=== PATIENT | female | born 1995 | race Caucasian/White ===

== ENCOUNTER 2017-04-19 16:58 | Emergency (ER) | payer OTHER ==
[2017-04-19 17:02] VITALS: BP 116/78; BMI 29.0
[2017-04-19] MEDS ORDERED: TORADOL 60 MG VIAL IM ONE (17:47)
--- NOTE | 2017-04-19 17:50 | DR.EXTPAIN ---
HPI - Time seen Time seen: 17:45 - PCP Primary Care Physician: NIKKI - HPI Comment HPI Comment: HISTORY BELOW. - Complaint/Symptoms Chief Complaint Doctor Comments: INJURY LEFT UPPER EXTREMITY DUE TO A FALL YESTERDAY. HAVING PROBLEM MOVING LEFT LIMB. Chief Complaint:: PT. STATES SHE FELL DOWN HER STEPS YESTERDAY LANDING ON THE PALMS OF HER HANDS. PT. C/O LEFT FOREARM, ELBOW, AND LEFT UPPER ARM PAIN. PT. STATES SHE IS UNABLE TO MOVE HER ARM WITHOUT PAIN. PT. IS WEARING A SLING. - Nurses notes reviewed Nurses Notes Review: Yes - Source History Provided: Patient - Mode of arrival Mode of Arrival: Ambulatory - Timing Onset of Chief Complaint: 04/18/17 - Context History of: None - Associated signs and symptoms Associated Signs and Symptoms: Weakness, Pain PMH - PMH Past Medical History: No Past Surgical History: No Surgical History: No History - Family History History of Family Medical Conditions: Yes Family Medical History: Cancer, [place] - Social History Does patient currently use any type of tobacco product: Yes Have you used tobacco products in the last 12 months: Yes Type of Tobacco Use: Cigarettes Does any household member use tobacco: No Alcohol Use: None Do you use any recreational Drugs:: No Lives With: Family Lives Where: Home - infectious screening In the last 2 months have you had wt loss of >10#?: NO Have you had fever, night sweats or hemotysis?: No Have you traveled outside the country in the last 6 months?: No Isolation: Standard ROS - Review of Systems Constitutional: No Symptoms Reported Eyes: No Symptoms Reported ENTM: No Symptoms Reported Respiratoy: No Symptoms Reported Cardiovascular: No Symptoms Reported Gastrointestinal/Abdominal: No Symptoms Reported Genitourinary: No Symptoms Reported Neurological: No Symptoms Reported Musculoskeletal: Left, Shoulder, Arm, Elbow, Forearm Integumentary: No Symptoms Reported Hematologic/Lymphatic: No Symptoms Reported Endocrine: No Symptoms Reported All Other Systems: Reviewed and Negative PE - Vital Signs Vitals: Temperature 98.5 F Pulse Rate 72 Respiratory Rate 17 Blood Pressure 116/78 O2 Sat by Pulse Oximetry 97 - General Limitations: No Limitations General Appearance: Alert - Head Head Exam: Normal Inspection - Eyes Eye exam: Normal Appearance - ENT ENT Exam: Normal External Ear Exam - Neck Neck Exam: Trachea Midline - Chest Chest Inspection: Symmetric Chest Wall Rise - Respiratory Respiratory Exam: Normal Lung Sounds Bilat Respiratory Exam: Bilateral Clear to Auscultation - Cardiovascular Cardiovascular Exam: Regular Rate, Normal Rhythm, Normal Heart Sounds - Abdominal Exam Abdominal Exam: Normal Bowel Sounds, Soft. negative: Tenderness - Extremities Extremities Exam: Tenderness (TENDERNESS LEFT SHOULDER, ARM AND ELBOW. DECREASE ROM.) - Lower Extremities Neurovascular/Tendon Exam: Normal Capillary Refill Gait Exam: Observed and Normal - Back Back Exam: Normal Inspection - Neurological Neurological Exam: Alert, Oriented X3 - Psychiatric Psychiatric Exam: Normal Affect, Normal Mood - Skin Skin Exam: Normal Color MDM - Differential Diagnosis Differential Diagnosis: Contusion, Fracture, Sprain Course - Treatment Treatment: SEE ORDERS. PATIENT SIGN OUT AMA BEFORE EVALUATION WAS COMPLETED. - Education/Counseling Education/Counseling: Patient, Education Educated On: Diagnosis ROR - XRAY XRAY Interpreted by: Radiologist XRAY Findings: REPORT NOTED - Diagnosis Discharge Problem: Sprain of left elbow Qualifiers: Encounter type: initial encounter Qualified Code(s): S53.402A - Unspecified sprain of left elbow, initial encounter Contusion of left arm Qualifiers: Encounter type: initial encounter Qualified Code(s): S40.022A - Contusion of left upper arm, initial encounter Sprain of left shoulder Qualifiers: Encounter type: initial encounter Shoulder sprain type: unspecified sprain Qualified Code(s): S43.402A - Unspecified sprain of left shoulder joint, initial encounter - Discharge Plan Disposition: 07 AGAINST MEDICAL ADVICE Condition: Stable - Follow ups/Referrals Follow ups/Referrals: FAUSTO JORDAN [Primary Care Provider] - 3 days - Instructions
[2017-04-19] MEDS ORDERED: TORADOL 60 MG VIAL ONE (18:27)
--- NOTE | 2017-04-19 18:58 | RAD ---
Indication: Pain . Exam: Left forearm series Findings: The radius and ulna are intact. No fracture or dislocation is seen. The joint spaces are in tact. Impression: No abnormality seen. Reported By:
--- NOTE | 2017-04-19 19:19 | RAD ---
Indication: Pain. Exam: Left humerus series Technique: AP and lateral views Findings: No fracture or dislocation is seen. The joint spaces are intact. The soft tissues are chuy l. Impression: No abnormality seen. Reported By:
== END 2017-04-19 19:17 | disposition left against medical advice (07) ==
LOC: ER 16:58
DX: S53.402A Unspecified sprain of left elbow, initial encounter (principal); S40.022A Contusion of left upper arm, initial encounter; S43.402A Unspecified sprain of left shoulder joint, initial encounter; W10.9XXA Fall (on) (from) unspecified stairs and steps, initial encounter; Y92.9 Unspecified place or not applicable
CPT/HCPCS: 73060; 73090; 96372; 99282; 99283; J1885

== ENCOUNTER → 2017-05-05 | Outpatient (CLI) | payer OTHER ==
[2017-04-19 17:02] VITALS: BP 116/78
--- NOTE | 2017-05-08 13:39 | MRI ---
MR left elbow without contrast Indication: Elbow pain after fall several weeks prior Comparison: 04/19/2017 radiographs. Technique: Multiplanar multi sequence imaging through the left elbow without contrast. Findings: There is elbow joint effusion and edema in the radial head neck. Intra-articular radial hea d fracture is with minimal displacement noted coronal image 10 through 12 of series 1001. Sagittal im age 9 of series 61718 also shows the fracture proceed the articular surface of the radius. Axial imag e 10 of series 1201 shows the fracture. There is small edema/contusion at the capitellum see coronal image 10. The ulnar collateral ligament shows minimal high signal but grossly intact fibers see coronal image 8. Minimal high signal is seen adjacent to the common flexor tendon origin see coronal image 6 and 7. Remaining bone marrow is normal. Trochlear joint is intact. Neurovascular structures are normal. Tric eps tendon, brachialis and biceps tendons are normal. Common extensor tendon origin is intact. Impression: 1. Minimally displaced intra-articular radial head and neck fracture. 2. Small contusion to the capitellum without large intra-articular body identified. Joint effusion is present. 3. Mild strain of the common flexor tendon origin and mild sprain of the ulnar collateral ligament. Reported By:
== END | disposition home or self-care (01) | DRG 556 ==
LOC: RAD 14:40
PROVIDERS: ATTEND Psychiatry & Neurology Neurology
DX: M25.522 Pain in left elbow (principal); M25.422 Effusion, left elbow; S56.212A Strain of other flexor muscle, fascia and tendon at forearm level, left arm, initial encounter; X58.XXXA Exposure to other specified factors, initial encounter; S53.442A Ulnar collateral ligament sprain of left elbow, initial encounter; S52.122A Displaced fracture of head of left radius, initial encounter for closed fracture
CPT/HCPCS: 73221

== ENCOUNTER 2017-07-19 01:58 | Emergency (ER) | payer OTHER ==
[2017-07-19 02:07] VITALS: BP 104/62; BMI 29.9
[2017-07-19] MEDS ORDERED: TORADOL TAB PO ONE ×2 (03:29→03:37)
[2017-07-19] MEDS ORDERED: LEVSIN/MAALOX/LIDOC VISC PO ONE (03:29)
--- NOTE | 2017-07-19 03:29 | DR.GENAD ---
HPI - PCP Primary Care Physician: NFD - HPI Comment HPI Comment: WORSE TONIGHT. HEART BURN IN THE CHEST IS ALSO GETTING WORSE. NO FEVER. USUALLY UTI CAUSE PATIENT TO HAVE PELVIC PRESSURE AND PAIN. - Complaint/Symptoms Chief Complaint Doctors Comments: PELVIC PAIN WND CHEST PAIN TIMES 6 DAYS. Chief Complaint:: BURNING DOWN THE MIDDLE OF CHEST CASSY AFTER EATING OR DRINKING , PAIN AND PRESSURE IN PELVIC AREA ALSO Self Treatment fo Chief Complaint: MOTRIN - Nurses notes reviewed Nurses Notes Review: Yes - Source History Provided: Patient - Mode of Arrival Mode of Arrival: Ambulatory - Timing Onset of Chief Complaint: 07/13/17 Came on: Suddenly - Duration Duration: Constant Duration: Days - Severity Severity: Moderate PMH - PMH Past Medical History: No Past Surgical History: No Surgical History: No History - Family History History of Family Medical Conditions: No Family Medical History: Cancer, [place] - Social History Does patient currently use any type of tobacco product: Yes Have you used tobacco products in the last 12 months: Yes Type of Tobacco Use: Cigarettes How many years tobacco product used: 4 Does any household member use tobacco: No Alcohol Use: None Do you use any recreational Drugs:: No Lives With: Family Lives Where: Home - infectious screening In the last 2 months have you had wt loss of >10#?: NO Have you had fever, night sweats or hemotysis?: No Have you traveled outside the country in the last 6 months?: No Isolation: Standard ROS - Review of Systems Constitutional: negative: Chills, Fever, Weakness, Fatigue Eyes: negative: Eye Pain, Discharge ENTM: No Symptoms Reported. negative: Ear Pain, Nose Discharge, Nose Congestion , Throat Pain Respiratoy: negative: Productive Cough, Non-Productive Cough, Short of Breath, Wheezing, Hemoptysis Cardiovascular: negative: Chest Pain Gastrointestinal/Abdominal: Abdominal Pain, Nausea. negative: Diarrhea, Vomiting Genitourinary: negative: Discharge, Dysuria, Frequency, Hematuria Neurological: negative: Headache, Weakness, Dizziness Musculoskeletal: Back Pain Integumentary: No Symptoms Reported Hematologic/Lymphatic: No Symptoms Reported Endocrine: No Symptoms Reported All Other Systems: Reviewed and Negative PE - Vital Signs Vitals: Temperature 99.0 F Pulse Rate 65 Respiratory Rate 20 Blood Pressure 104/62 O2 Sat by Pulse Oximetry 97 - General Limitations: No Limitations General Appearance: Alert - Head Head Exam: Normal Inspection - Eyes Eye exam: Normal Appearance - ENT ENT Exam: Normal External Ear Exam External Ear Exam: Normal External Inspection TM/Canal Exam: Bilateral Normal Nose Exam: Normal Nose Exam Mouth Exam: Normal Inspection Throat Exam: negative: Tonsillar Erythema, Tonsillomegaly - Neck Neck Exam: Normal Inspection. negative: Trachea Midline, Tenderness, Meningismus, Lymphadenopathy - Chest Chest Inspection: Symmetric Chest Wall Rise - Respiratory Respiratory Exam: Normal Lung Sounds Bilat Respiratory Exam: Bilateral Clear to Auscultation - Cardiovascular Cardiovascular Exam: Regular Rate, Normal Rhythm, Normal Heart Sounds - Abdominal Exam Abdominal Exam: Normal Bowel Sounds, Soft, Tenderness Abdominal Tenderness: Epigastrium - Extremities Extremities Exam: Normal Inspection - Back Back Exam: Normal Inspection - Neurologic Neurological Exam: Alert, Oriented X3, CN II-XII Intact, Motor Sensory Deficit - Psychiatric Psychiatric Exam: Normal Affect, Normal Mood - Skin Skin Exam: Normal Color MDM - Differential Diagnosis Differential Diagnosis: DYSPEPSIA, UTI, PELVIC PAIN Course - Treatment Treatment: SEE ORDERS. - Education/Counseling Education/Counseling: Patient, Education Educated On: Diagnosis, Needs for Follow Up ROR - Labs Reviewed Laboratory Results Reviewed?: Yes Laboratory: Specimen Type Clean catch urine 07/19/17 03:21 Urine Color Yellow (YELLOW) 07/19/17 03:21 Urine Appearance Clear (CLEAR) 07/19/17 03:21 Urine pH 5.0 (5.0 - 8.0) 07/19/17 03:21 Ur Specific [place] 1.020 (1.000-1.030) 07/19/17 03:21 Urine Protein Negative (NEGATIVE) 07/19/17 03:21 Urine Glucose (UA) Negative (NEGATIVE) 07/19/17 03:21 Urine Ketones Negative (NEGATIVE) 07/19/17 03:21 Urine Occult Blood 1+ (NEGATIVE) 07/19/17 03:21 Urine Nitrite Negative (NEGATIVE) 07/19/17 03:21 Urine Bilirubin Negative (NEGATIVE) 07/19/17 03:21 Urine Urobilinogen Normal (NORMAL) 07/19/17 03:21 Ur Leukocyte Esterase 1+ (NEGATIVE) 07/19/17 03:21 Urine RBC 0-2 /HPF (NONE SEEN) 07/19/17 03:21 Urine WBC 0-2 /HPF (NONE SEEN) 07/19/17 03:21 Ur Squamous Epith Cells Few /HPF (NEGATIVE) 07/19/17 03:21 Urine Bacteria Negative /HPF (NEGATIVE) 07/19/17 03:21 Ur Culture Indicated? No/not indicated 07/19/17 03:21 - Diagnosis Discharge Problem: Pelvic pain, Heart burn - Discharge Plan Disposition: HOME, SELF-CARE Condition: Stable Prescriptions: Doxycycline Monohydrate 100 mg PO BID #20 tablet Ranitidine HCl [Zantac] 300 mg PO DAILY #30 tab - Follow ups/Referrals Follow ups/Referrals: NFD,None [Primary Care Provider] - 3 days - Instructions Instructions: Indigestion, [id number], Pelvic Pain, Female, [id number] Additional Instructions: RETURN TO ED IF WORSE.
[2017-07-19] MEDS ORDERED: PEPCID TAB 20 MG PO ONE (03:31)
[2017-07-19 03:36] LABS: BILIRUBIN,URINE NEGATIVE (NEGATIVE); BLOOD/HEMOGLOBIN,URINE 1+ (NEGATIVE); GLUCOSE, URINE NEGATIVE (NEGATIVE); KETONES,URINE NEGATIVE (NEGATIVE); LEUKOCYTE ESTERASE ,URINE 1+ (NEGATIVE); NITRITES,URINE NEGATIVE (NEGATIVE); PROTEIN,URINE NEGATIVE (NEGATIVE); UROBILINOGEN,URINE NORMAL (NORMAL)
[2017-07-19] MEDS ORDERED: PEPCID TAB 20 MG ONE ×2 (03:37→03:38)
[2017-07-19] MEDS ORDERED: LEVSIN/MAALOX/LIDOC VISC ONE (03:38)
[2017-07-19 03:56] LABS: APPEARANCE,URINE CLEAR (CLEAR); COLOR,URINE YELLOW (YELLOW)
[2017-07-19 03:57] LABS: BACTERIA,URINE NEGATIVE /HPF (NEGATIVE); RBC,URINE 0-2 /HPF (NONE SEEN); SQUAMOUS EPITHELIAL CELL,UR FEW /HPF (NEGATIVE)
== END 2017-07-19 04:53 | disposition home or self-care (01) ==
LOC: ER 01:58
DX: R12 Heartburn (principal); R10.2 Pelvic and perineal pain
CPT/HCPCS: 81001; 99282; 99283

== ENCOUNTER 2018-12-06 08:16 | Inpatient (IN) ==
[2018-12-06 08:30] VITALS: BMI 29.2
[2018-12-06] MEDS ORDERED: MOTRIN TAB 800 MG PO PRN (08:30)
[2018-12-06] MEDS ORDERED: MOTRIN TAB 800 MG PO ONE ×2 (08:44→08:48)
[2018-12-06 08:48] LABS: BASOPHILS # (AUTO) 0.1 X10^3/uL (0.0-0.1); BASOPHILS % (AUTO) 0.5 % (0.2-1.0); EOSINOPHILS # (AUTO) 0.1 x10^3/uL (0.0-0.2); EOSINOPHILS % (AUTO) 0.7 % (0.9-2.9); HEMATOCRIT 43.2 % (36.0-47.0); HEMOGLOBIN 14.9 g/dL (12.0-16.0); LYMPHOCYTES # (AUTO) 5.8 X10^3/uL (1.3-2.9); LYMPHOCYTES % (AUTO) 29.6 % (21.0-51.0); MEAN CORPUSCULAR HEMOGLOBIN 31.1 pg (27.0-34.0); MEAN CORPUSCULAR HGB CONC 34.5 g/dL (33.0-35.0); MEAN CORPUSCULAR VOLUME 90.2 fL (80.0-100.0); MEAN PLATELET VOLUME 10.6 fL (7.4-11.0); MONOCYTES # (AUTO) 1.1 x10^3/uL (0.3-0.8); MONOCYTES % (AUTO) 5.5 % (0.0-13.0); NEUTROPHILS # (AUTO) 12.6 x10^3/uL (2.2-4.8); NEUTROPHILS % (AUTO) 63.7 % (42.0-75.0); PLATELET COUNT 274 X10^3/uL (150.0-450.0); RED BLOOD COUNT 4.79 X10^6/uL (3.5-5.4); RED CELL DISTRIBUTION WIDTH 13.2 % (11.6-16.5); WHITE BLOOD COUNT 19.7 X10^3/uL (3.6-10.0)
[2018-12-06 08:57] LABS: ALANINE AMINOTRANSFERASE 8 Units/L (12-78); ALBUMIN 2.9 g/dL (3.4-5.0); ALKALINE PHOSPHATASE 158 Units/L (46-116); ASPARTATE AMINO TRANSFERASE 15 Units/L (15-37); BLOOD UREA NITROGEN 13 mg/dL (7-18); CALCIUM 8.8 mg/dL (8.5-10.1); CARBON DIOXIDE 25.2 mmol/L (21-32); CHLORIDE 103 mmol/L (98-107); COR CA(FOR HYPOALB) 9.7 mg/dL (8.5-10.1); SODIUM 138 mmol/L (136-145); TOTAL PROTEIN 7.6 g/dL (6.4-8.2); eGFR NON BLACK RACES > 60 (>60)
--- NOTE | 2018-12-06 09:23 | DR.PREG ---
HPI Time seen Time Seen by Provider: 12/06/18 08:20 PCP Primary Care Physician: EDDIE HPI Comment HPI Comment: [place] Chief Complaint Chief Complaint Doctors Comments: LABOR, EMERGENCY DELIVERY IN TRIAGE. Chief Complaint:: 37 WEEK OB WITH C/O ACTIVE LABOR. UPON ARRIVAL TO TRIAGE, PT. IS UNABLE TO BE STILL AND SHE STATES SHE HAS TO PUSH. MOMENTARILY AFTER ENTERING TRIAGE ROOM, PT. IS STANDING UP AND REPORTS THAT "HE IS OUT." SEE NURSE'S NOTES FOR FURTHER DOCUMENTATION. Source History Provided: Patient Mode of Arrival Mode of Arrival: Ambulatory Timing Onset of Chief Complaint: 12/06/18 PMH PMH Past Medical History: No Past Surgical History: No Surgical History: No History Family History History of Family Medical Conditions: Yes Family Medical History: Cancer and [place] Social History Does patient currently use any type of tobacco product: Yes Have you used tobacco products in the last 12 months: Yes Type of Tobacco Use: Cigarettes Does any household member use tobacco: No Alcohol Use: None Do you use any recreational Drugs:: No Lives With: Family Lives Where: Home infectious screening In the last 2 months have you had wt loss of >10#?: NO Have you had fever, night sweats or hemotysis?: No Have you traveled outside the country in the last 6 months?: No Isolation: Standard PE Vital Signs Vitals: Temperature 97.2 F Pulse Rate [Right Brachial] 51 Pulse Rate 71 Respiratory Rate 17 Blood Pressure [Right Arm] 120/72 Blood Pressure 119/99 O2 Sat by Pulse Oximetry 99 ROR Labs Reviewed Result Diagrams: 12/06/18 08:30 12/06/18 08:30 Laboratory: WBC 19.7 X10^3/uL (3.6-10.0) H 12/06/18 08:30 RBC 4.79 X10^6/uL (3.5-5.4) 12/06/18 08:30 Hgb 14.9 g/dL (12.0-16.0) 12/06/18 08:30 Hct 43.2 % (36.0-47.0) 12/06/18 08:30 MCV 90.2 fL (80.0-100.0) 12/06/18 08:30 MCH 31.1 pg (27.0-34.0) 12/06/18 08:30 MCHC 34.5 g/dL (33.0-35.0) 12/06/18 08:30 RDW 13.2 % (11.6-16.5) 12/06/18 08:30 Plt Count 274 X10^3/uL (150.0-450.0) 12/06/18 08:30 MPV 10.6 fL (7.4-11.0) 12/06/18 08:30 Neut % (Auto) 63.7 % (42.0-75.0) 12/06/18 08:30 Lymph % (Auto) 29.6 % (21.0-51.0) 12/06/18 08:30 [place] % (Auto) 5.5 % (0.0-13.0) 12/06/18 08:30 Eos % (Auto) 0.7 % (0.9-2.9) L 12/06/18 08:30 Baso % (Auto) 0.5 % (0.2-1.0) 12/06/18 08:30 Neut # (Auto) 12.6 x10^3/uL (2.2-4.8) H 12/06/18 08:30 Lymph # (Auto) 5.8 X10^3/uL (1.3-2.9) H 12/06/18 08:30 [place] # (Auto) 1.1 x10^3/uL (0.3-0.8) H 12/06/18 08:30 Eos # (Auto) 0.1 x10^3/uL (0.0-0.2) 12/06/18 08:30 Baso # (Auto) 0.1 X10^3/uL (0.0-0.1) 12/06/18 08:30 Absolute Nucleated RBC 0.0 /100WBC 12/06/18 08:30 Sodium 138 mmol/L (136-145) 12/06/18 08:30 Corrected Sodium TNP 12/06/18 08:30 Potassium 3.9 mmol/L (3.5-5.1) 12/06/18 08:30 Chloride 103 mmol/L (98-107) 12/06/18 08:30 Carbon Dioxide 25.2 mmol/L (21-32) 12/06/18 08:30 BUN 13 mg/dL (7-18) 12/06/18 08:30 Creatinine 0.90 mg/dL (0.55-1.02) 12/06/18 08:30 Est GFR (MDRD) Af Amer > 60 (>60) 12/06/18 08:30 Est GFR (MDRD) Non-Af > 60 (>60) 12/06/18 08:30 Glucose 108 mg/dL (65-99) H 12/06/18 08:30 Calcium 8.8 mg/dL (8.5-10.1) 12/06/18 08:30 Corrected Calcium 9.7 mg/dL (8.5-10.1) 12/06/18 08:30 Total Bilirubin 0.20 mg/dL (0.2-1.0) 12/06/18 08:30 AST 15 Units/L (15-37) 12/06/18 08:30 ALT 8 Units/L (12-78) L 12/06/18 08:30 Alkaline Phosphatase 158 Units/L (46-116) H 12/06/18 08:30 Total Protein 7.6 g/dL (6.4-8.2) 12/06/18 08:30 Albumin 2.9 g/dL (3.4-5.0) L 12/06/18 08:30 Globulin 4.7 g/dL (2.5-4.5) H 12/06/18 08:30 Albumin/Globulin Ratio 0.6 Ratio (1.1-2.1) L 12/06/18 08:30 RPR Nonreactive (NONREACTIVE) 12/06/18 08:30 Opioid Opioid Risk Tool Total: 0 Total Score Risk Category: Low Risk Copyright: Jose Antonio DAWSON predicting aberrant behaviors
[2018-12-06] MEDS ORDERED: MILK OF MAGNESIA PO PRN (09:40)
[2018-12-06] MEDS ORDERED: DERMOPLAST SPRAY TOP PRN (09:40)
[2018-12-06] MEDS ORDERED: AMBIEN PO PRN (09:40)
[2018-12-06] MEDS ORDERED: D5 1/2 NS 1L W PITOCIN 20 UNITS/L 20 UNITS/1,000 ML BAG IV ONE (11:46)
[2018-12-06] MEDS ORDERED: PITOCIN ONE (11:46)
[2018-12-06] MEDS: PERCOCET TAB 5/325 MG PO PRN ×2 (14:00→23:38)
[2018-12-06] MEDS: D5 1/2 NS 1000 ML 1,000 ML with PITOCIN 20 UNITS IV SCH ×4 (18:24→20:32)
[2018-12-06] MEDS: NICOTINE PATCH TD SCH (20:32)
[2018-12-06] MEDS: ZANTAC PO SCH (20:32)
[2018-12-07 05:16] LABS: HEMATOCRIT 35.9 % (36.0-47.0)
[2018-12-07 05:41] LABS: HEMOGLOBIN 12.6 g/dL (12.0-16.0)
[2018-12-07] MEDS ORDERED: PRENATAL PLUS PO SCH (09:00)
[2018-12-07] MEDS: ZANTAC PO SCH (09:39)
[2018-12-07] MEDS: NICOTINE PATCH TD SCH (09:40)
[2018-12-07] MEDS: PERCOCET TAB 5/325 MG PO PRN (09:49)
[2018-12-07 14:50] VITALS: BP 119/79
== END 2018-12-07 13:05 | disposition home or self-care (01) | DRG 807 ==
LOC: ER 08:16 → LD 08:40 → MED/SURG 09:34
PROVIDERS: ADMIT Specialist; ATTEND Specialist
DX: Z3A.37 37 weeks gestation of pregnancy; O80 Encounter for full-term uncomplicated delivery; Z37.0 Single live birth
CPT/HCPCS: 36415; 80053; 85014; 85018; 85025; 86592; 86850; 86900; 86901; 96365; 99284; A4216; A4222; S0197; J2590

== ENCOUNTER 2021-03-07 09:54 | Inpatient (IN) ==
[2021-03-07 10:14] VITALS: BMI 23.1
[2021-03-07 10:26] LABS: AMNISURE ROM TEST THERE IS A RUPTURE (NO RUPTURE)
[2021-03-07] MEDS ORDERED: D5 1/2 NS 1,000 ML 1,000 ML IV ONE (10:45)
[2021-03-07] MEDS ORDERED: BETADINE SOLN ONE (10:45)
[2021-03-07] MEDS ORDERED: PITOCIN ONE (10:45)
[2021-03-07] MEDS ORDERED: D5 LR + PITOCIN 10 UNITS/L 10 UNITS/1,000 ML BAG IV ONE (10:46)
[2021-03-07] MEDS ORDERED: AMPICILLIN VIAL 2 GRAM ONE (10:56)
[2021-03-07] MEDS ORDERED: NS 100 ML IV 100 ML ONE (10:56)
[2021-03-07] MEDS ORDERED: PHENERGAN INJ 25 MG IM PRN ×2 (11:03→13:56)
[2021-03-07] MEDS ORDERED: D5 LR + PITOCIN 10 UNITS/L 10 UNITS/1,000 ML BAG IV PRN (11:03)
[2021-03-07] MEDS ORDERED: REGLAN INJ 10 MG VIAL IVP PRN (11:03)
[2021-03-07] MEDS ORDERED: PITOCIN IVP ONE (11:03)
[2021-03-07] MEDS ORDERED: STADOL INJ IVP PRN (11:05)
[2021-03-07] MEDS ORDERED: STADOL INJ ONE (11:22)
[2021-03-07 11:25] LABS: BASOPHILS # (AUTO) 0.1 X10^3/uL (0.0-0.1); BASOPHILS % (AUTO) 0.7 % (0.2-1.0); EOSINOPHILS # (AUTO) 0.1 x10^3/uL (0.0-0.2); EOSINOPHILS % (AUTO) 0.6 % (0.9-2.9); HEMATOCRIT 28.6 % (36.0-47.0); HEMOGLOBIN 9.6 g/dL (12.0-16.0); LYMPHOCYTES # (AUTO) 2.3 X10^3/uL (1.3-2.9); LYMPHOCYTES % (AUTO) 21.3 % (21.0-51.0); MEAN CORPUSCULAR HEMOGLOBIN 27.4 pg (27.0-34.0); MEAN CORPUSCULAR HGB CONC 33.8 g/dL (33.0-35.0); MEAN CORPUSCULAR VOLUME 81.1 fL (80.0-100.0); MEAN PLATELET VOLUME 9.4 fL (7.4-11.0); MONOCYTES # (AUTO) 0.9 x10^3/uL (0.3-0.8); MONOCYTES % (AUTO) 7.9 % (0.0-13.0); NEUTROPHILS # (AUTO) 7.6 x10^3/uL (2.2-4.8); NEUTROPHILS % (AUTO) 69.5 % (42.0-75.0); PLATELET COUNT 268 X10^3/uL (150.0-450.0); RED BLOOD COUNT 3.52 X10^6/uL (3.5-5.4); RED CELL DISTRIBUTION WIDTH 14.6 % (11.6-16.5)
[2021-03-07 11:31] LABS: BLOOD UREA NITROGEN 6 mg/dL (7-18); CALCIUM 7.8 mg/dL (8.5-10.1); CARBON DIOXIDE 26.7 mmol/L (21-32); CHLORIDE 106 mmol/L (98-107); CREATININE 0.65 mg/dL (0.55-1.02); SODIUM 139 mmol/L (136-145); eGFR NON BLACK RACES > 60 (>60)
[2021-03-07] MEDS ORDERED: D5 1/2 NS 1,000 ML 1,000 ML IV SCH (12:00)
[2021-03-07] MEDS ORDERED: AMPICILLIN VIAL 2 GRAM 2 G in NS 100 ML IV + SPIKE MINIBAG* 100 ML IV SCH (12:00)
[2021-03-07] MEDS ORDERED: NAROPIN EPIDURAL 0.2% 0 ML ONE (12:33)
[2021-03-07] MEDS ORDERED: LR 1,000 ML IV 1,000 ML IV ONE (12:33)
[2021-03-07] MEDS ORDERED: FENTANYL VIAL INJ 100 mcg ONE ×2 (12:33→12:34)
[2021-03-07] MEDS ORDERED: MOTRIN TAB 800 MG PO PRN (13:56)
[2021-03-07] MEDS: D5 1/2 NS 1,000 ML 1,000 ML with PITOCIN 20 UNITS IV SCH ×4 (14:00→22:00)
[2021-03-07] MEDS ORDERED: DERMOPLAST PAIN RELIEF SPRAY TOP PRN (14:34)
[2021-03-07] MEDS ORDERED: MILK OF MAGNESIA PO PRN (14:34)
[2021-03-07] MEDS ORDERED: AMBIEN PO PRN (14:34)
[2021-03-07] MEDS ORDERED: D5 1/2 NS 1,000 mL + PITOCIN 20 UNITS/L IV 20 UNITS/1,000 ML BAG IV ONE (14:43)
[2021-03-07] MEDS: MOTRIN TAB 800 MG PO PRN ×2 (15:55→23:41)
[2021-03-08 05:10] LABS: HEMOGLOBIN 9.7 g/dL (12.0-16.0)
[2021-03-08] MEDS: D5 1/2 NS 1,000 ML 1,000 ML with PITOCIN 20 UNITS IV SCH ×2 (05:42)
[2021-03-08] MEDS ORDERED: PRENATAL PLUS PO SCH (09:00)
[2021-03-08] MEDS: MOTRIN TAB 800 MG PO PRN (09:58)
[2021-03-08 10:00] VITALS: BP 120/80
--- OUTSIDE RECORDS SUMMARY | 2021-03-08 10:58 | XMS | Continuity of Care Document ---
:1995 Author Name [employer], System Address Unavailable Unavailable , Care Team Providers Name Role Phone Stephanie Resendez NP Unavailable Jeffry Guzman Unavailable [place] Unavailable Unavailable Brenna Resendez NP Unavailable Unavailable Unavailable Problems Name Dates Details Abdominal pain, colicky (R10.84, 789.00) Status: Active Abdominal pain, epigastric (R10.13, 789.06) Status: Active Abdominal pain, RUQ (R10.11, 789.01) Com ments: Pt has Dicyclomine and a PPI Omeprazole that she takes when her sx's recur and has started them back this week. We will again request a precert and schedule her for a gall bladder sonogram. Status: Active Closed nondisplaced fracture of neck of left radius, initial encounter (S52.135A, 813.06) Comments: She has an undispl aced fracture involving the LEFT radial neck as well as the head. Natural history and treatment discussions done with her. She seems to be doing well and seems to be progressing well . [facility] at this time as she seems to be healing well. Status: Active Essentially healthy without known chronic problems Status: Active Finger numbness (R20.0, 782.0) Comments: We will precert and schedule a NCS of the left upper extremity.See above note r/t left elbow Status: Active Left arm pain (M79.602, 729.5) Comments: Given Ketoralac 30 mg IM right deltoid @ 3:55pm per Victorino and referred to the [facility] ER.S/P fall with pain in left forearm rad to left elbow with numbness and tingling in finger tips. Status: Active Menometrorrhagia (N92.1, 626.2) Comments : Currently using Xulane control patches. The hospital has not been able to find any recent ER records and she is not sure of the date she went but says she did have a pelvic exam and thinks they did a sonogram. We will send a referral request for additional evaluation with Dr South in [place]. Status: Active Pain and swelling of elbow, left (M25.522, 719.42) Comments: We will see if we can get an MRI precerted and scheduled of the left upper ext/elbowOnset after a fall on 04/18/2017 seen in Er and xrays were negative for fracture Status: Active Sprain of ulnar collateral ligament of l eft elbow, initial encounter (S53.442A, 841.1) Comments: She has a sprain o f the UCL on the LEFT elbow. No sense of instability. She lacks 15-20 of full extension. We will start physical therapy to regain range of motion as well as strength. She will co me back to the offic e in a month. All questions were answered. Status: Active Medications Name Dates Details Dicyclomine HCl 10 MG Oral Capsule 1 (one) Capsule Capsule Take one cap 30 min before meals TID for 0 days Quantity: 60 {Capsule} Refills: 0 Ordered:07-Jan-2019 Benita Mckeon Start : 07-Jan-2019 Active Ibuprofen 800 MG Oral Tablet 1 TID, prn (800 MG) Active Pantoprazole Sodium 40 MG Oral Tablet Delayed Release 1 (one) Tablet Tablet Take one tab every AM before eating on an empty stomach for 30 days Quantity: 30 {Tablet} Refills: 1 Ordered:07-Jan-2019 Benita Mckeon Start : 07-Jan-2019 Active Allergies and Adverse Reactions Name Dates Details No Known Drug Allergies (Allergy) Onset: 18-Apr-2017 Status : Active Procedures Procedure Dates Details No Known Past Surgical History Completed 07-Jan-2019 Social History Name Dates Details Current tobacco use Status: Active No Drug Use Status: Active Non Drinker/No Alcohol Use Status: Activ e Seat Belt Use: Almost always uses seat belts. Status: Active Vital Signs Date Test Result Details :37 Body temperature 98.1 f Heart Rate 82 /min Comments: Pattern: R egular Respiratory rate 18 /min Comments: Pattern: U nlabored O2 SAT 99 % Comments: Room air Systolic blood pressure 107 mm[Hg] Comments: Patien t Position: Sitting; Cuff Location: Left Arm; Cuff Size: Standard Diastolic blood pressure 66 mm[Hg] Comments: Patie nt Position: Sitting; Cuff Location: Left Arm; Cuff Size: Standard Weight 119 lb Body height 65 in Body mass index (BMI) [Ratio] 19.80 kg/m2 Body surface area Derived from formula 1.59 m2 :07 Body temperature 97.3 f Heart Rate 65 /min Comments: Pattern: R egular Respiratory rate 18 /min Comments: Pattern: U nlabored O2 SAT 100 % Comments: Room air Systolic blood pressure 108 mm[Hg] Comments: Patien t Position: Sitting; Cuff Location: Left Arm; Cuff Size: Standard Diastolic blood pressure 67 mm[Hg] Comments: Patie nt Position: Sitting; Cuff Location: Left Arm; Cuff Size: Standard Weight 130 lb Body height 65 in Body mass index (BMI) [Ratio] 21.63 kg/m2 Body surface area Derived from formula 1.65 m2 :46 Body temperature 98.4 f Heart Rate 87 /min Comments: Pattern: R egular Respiratory rate 18 /min Comments: Pattern: U nlabored Systolic blood pressure 124 mm[Hg] Comments: Patien t Position: Sitting; Cuff Location: Left Arm; Cuff Size: Standard Diastolic blood pressure 72 mm[Hg] Comments: Patie nt Position: Sitting; Cuff Location: Left Arm; Cuff Size: Standard Weight 136 lb Body height 65 in Body mass index (BMI) [Ratio] 22.63 kg/m2 Body surface area Derived from formula 1.68 m2 :52 Body temperature 98 f Comments: Metho d: Oral Heart Rate 91 /min Comments: Pattern: R egular Systolic blood pressure 124 mm[Hg] Comments: Patien t Position: Sitting; Cuff Location: Left Arm; Cuff Size: Standard Diastolic blood pressure 72 mm[Hg] Comments: Patie nt Position: Sitting; Cuff Location: Left Arm; Cuff Size: Standard Weight 180 lb Body height 65 in Body mass index (BMI) [Ratio] 29.95 kg/m2 Body surface area Derived from 1.89 m2 formula :57 Body temperature 98.9 f Comments: Meth od: Oral Heart Rate 64 /min Comments: Pattern: R egular Respiratory rate 19 /min Comments: Pattern: U nlabored O2 SAT 98 % Comments: Room air Systolic blood pressure 106 mm[Hg] Comments: Patien t Position: Sitting; Cuff Location: Left Arm; Cuff Size: Standard Diastolic blood pressure 69 mm[Hg] Comments: Patie nt Position: Sitting; Cuff Location: Left Arm; Cuff Size: Standard Weight 182 lb Body height 66 in Body mass index (BMI) [Ratio] 29.38 kg/m2 Body surface area Derived from formula 1.92 m2 :54 Body temperature 100.2 f Comments: Metho d: Oral Heart Rate 90 /min Comments: Pattern: R egular Respiratory rate 19 /min Comments: Pattern: U nlabored O2 SAT 99 % Comments: Room air Systolic blood pressure 122 mm[Hg] Comments: Patien t Position: Sitting; Cuff Location: Left Arm; Cuff Size: Standard Diastolic blood pressure 75 mm[Hg] Comments: Patie nt Position: Sitting; Cuff Location: Left Arm; Cuff Size: Standard Weight 180 lb Body height 66 in Body mass index (BMI) [Ratio] 29.05 kg/m2 Body surface area Derived from formula 1.91 m2 Results Date Description Value Details :08 URINALYSIS, AUTOMATED, W/O MICRO ([id number]) UA - APPEARANCE clear (Normal) UA - BILIRUBIN Negative (Normal) UA - BLOOD Negative (Normal) UA - COLOR yellow (Normal) UA - GLUCOSE Negative g/dL (Normal) UA - KETONES Trace(5) mg/dL (Normal) UA - LEUKOCYTE ESTERASE Negative (Normal) UA - NITRITE Positive (Normal) UA - PH 6.5 (Normal) UA - PROTEIN 30(+) mg/dL (Normal) UA - REDUCING SUBSTANCE n/a (Normal) UA - SPECIFIC GRAVITY 1.025 (Normal) Plan of Care Name Dates Details Instructions Follow up after consult/ DR SOUTH/ STEFANY Start: 19-Aug-2019 Instruction Type: Provider Instructions for Treatment Indication: Menometrorrhagia Follow up -Call or Make appt after diagnostic tests t o review results. Start: 19-Aug-2019 Instruction Type: Provider Instructions for Treatment Indication: Abdominal pain, RUQ Cholecystitis: gallbladder Start: 19-Aug-2019 Instruction Type: Patient Education Indication: Abdominal pain, RUQ Gallstones *: gall bladder disease Start: 19-Aug-2019 Inst ruction Type: Patient Education Indication: Abdominal pain, RUQ Dysmenorrhea (menstrual cramps) Start: 19-Aug-2019 Instruc tion Type: Patient Education Indication: Menometrorrhagia Ovarian Cyst Start: 19-Aug-2019 Instruction Type: P atient Education Indication: Menometrorrhagia Follow up -Call or Make appt after diagnostic tests t o review results. Start: 28-Mar-2019 Instruction Type: Provider Instructions for Treatment Indication: Abdominal pain, RUQ Follow up if no improvement or if symptoms worsen Start: Instruction Type: Provider Instructions for Treatment Indication: Abdominal pain, RUQ Gallstones *: gall bladder disease Start: 28-Mar-2019 Inst ruction Type: Patient Education Indication: Abdominal pain, RUQ Cholecystitis: gall bladder Start: 28-Mar-2019 Instruction Type: Patient Education Indication: Abdominal pain, RUQ Follow up in 1 week Start: 07-Jan-2019 Instruction Type: P narinder Instructions for Treatment Indication: Abdominal pain, RUQ Follow up -Call or Make appt after diagnostic tests t o review results. Start: 07-Jan-2019 Instruction Type: Provider Instructions for Treatment Indication: Abdominal pain, RUQ Follow up if no improvement or if symptoms worsen Start: Instruction Type: Provider Instructions for Treatment Indication: Abdominal pain, RUQ Gastritis *: inflammation Start: 07-Jan-2019 Instruction T ype: Patient Education Indication: Abdominal pain, epigastric Gallstones *: abdominal pain Start: 07-Jan-2019 Instructio n Type: Patient Education Indication: Abdominal pain, RUQ Abdominal Pain, Etiology Unknown, Female Start: 07-Jan-2019 Instruction Type: Patient Education Indication: Abdominal pain, colicky Follow up if no improvement or if symptoms worsen Start: Instruction Type: Provider Instructions for Treatment Indication: Finger numbness Follow up -Call or Make appt after diagnostic tests t o review results. Start: 01-May-2017 Instruction Type: Provider Instructions for Treatment Indication: Finger numbness Follow up -Call or Make appt after diag nostic tests to review results. and ER visit Start: 18-Apr-2017 Instruction Type: Provider Instructions for Treatment Indication: Left arm pain Follow up if no improvement or if symptoms worsen Start: Apr-2017 Instruction Type: Provider Instructions for Treatment Indication: Left arm pain Planned Observations BMP ([id number])Indication: Abdominal pain, RUQ On: [id number] :52 Request CBC, PLATELETS & AUT DIFF ([id number])Indication: Abdominal pain, RUQ On: [id number]-[id number]:52 Request AMYLASE ([id number])Indication: Abdominal pain, RUQ On: 08-Jan-20 1916:52 Request LIPASE ([id number])Indication: Abdominal pain, RUQ On: 916:52 Request HEPATIC FUNCTION PANEL ([id number])Indication: Abdominal pa in, RUQ On: [id number]-Ddg-[id number] Request H.PYLORI* ([id number])Indication: Abdominal pain, epigastric On: [id number]-[id number]:41 Request Comments: Negative i n office 01-07-2019 Planned Procedures TRANSVAGINAL US, NON-OB ([id number])By: Mal On: 19-Aug-2019 I Stephanie georges NP GALLBLADDER ULTRASOUND ([id number])By: On: 19-Aug-2019 Intent Benita Mckeon Upper Abd/GB US ([id number])By: Mal BURTON, On: 28-Mar-2019 Inten t Stephanie C Upper Abd/GB US ([id number])By: Mal BURTON, On: 07-Jan-2019 Inten t Stephanie C 3 view elbow ([id number])By: Kate Stokes On: 29-May-2017 Int ent SLINGS ([id number])By: Gerda Jacobsen On: 09-May-2017 Inten t Comments: LEFT ARM PHYSICAL THERAPY TREATMENT ([id number])By: On: 09-May-2017 In tent Gerda Jacobsen Comments: LEFT ELBOW : ROM, STRENTHENING, PAIN MANAGEMENT ELECTROMYOGRAPHY OF EACH EXTREMITY, On: 02-May-2017 Inte nt FOUR OR FEWER MUSCLES ([id number])By: Mary Beth Dillard NERVE CONDUCTION STUDY OF 5 TO 6 On: 02-May-2017 Intent NERVES ([id number])By: Mary Beth Dillard NERVE CONDUCTION STUDY OF 3 TO 4 On: 01-May-2017 Intent NERVES ([id number])By: Stephanie Resendez NP nts: left upper extremity MAGNETIC RESONANCE IMAGING OF LEFT On: 01-May-2017 Inten t ELBOW WITHOUT GADOLINIUM ([id number])By: Stephanie Resendez NP TORODAL INJECTION, PER 15 MG On: 18-Apr-2017 Intent ([id number])By: Stephanie Resendez NP Comments: Ke toralac 30 mg IM right deltoid at 3:55 pm per Victorino. ADMINISTRATION FEE ([id number])By: Mal BURTON, On: 18-Apr-2017 In tent Stephanie Ceja Encounters Review On: 08-Mar-2021 10:53 [facility] Office Visit On: 19-Aug-2019 14:36 Encounter Reason: Abdominal pain - The o nset of the abdominal pain has been variable (Pt with recurrent right upper quadrant pain and nausea with frequent colic type episodes with associated nausea and weight loss. The r End: 19-Aug-2019 17:43 ight upper quadrant pain and GI sx's sta rted when she was and have been recurrent for over nine months. After her delivery, her medicaid coverage was dropped and she was not able to get the s onogram of her gall bladder done. She has finally recently gotten her insurance re-instated and we will schedule and precert her for the gall bladder sonogram. Since her delivery, she has been on a bi rth control patch. For the past month, she has had lower right quadrant pain with heavy menstrual flow and continues on control patch Xulane that she changes weekly. She went to the ER a f ew weeks ago and says she had a vaginal exam and was told she had several cysts on her right ovary and would need to follow up with a gang mower operator. The only name she recalls from the visit is the admiss ariana Strange) Her RLQ pain an d heavy menstrual flow continues and she wants us to schedule her a referral appt with a Dovetail Machine Operator.Her RUQ pain has been intermittent for > than 9 months ) and has been occurring in a persistent pattern for 9 months. The course has been recurrent. The abdominal pain is described as a mild colicky. The abdominal pain is described as being located in the r ight upper quadrant. The abdominal pain radiates to the right shoulder. The symptoms are aggravated by meals (1/2 to 1 hour after eating). The symptoms are relieved by belching. The symptoms have been a ssociated with constipation. Note for "A bdominal pain": Pt is here today with complaints of having abdominal pain X 9 months. She hurts more when she eats salads, pork, and bbq foods. Pt states she belc h's a lot as well. She stays nauseated a nd it attacks her at different times. Pt has lost a lot of weight because she is afraid to eat at times due to the pain being so bad. Pt is not allergic to any medications.Encounter Diagnosis: Abdominal pain, RUQ, Menometrorrhagia [facility] Office Visit On: 28-Mar-2019 14:30 Encounter Reason: Abdominal pain - The o nset of the abdominal pain has been gradual (Pt has been having pain and nausea for over 6 to 7 months that started while she was and localized most in the RUQ and is aggr End: 28-Mar-2019 17:21 evated by greasy, spicy and fried foods. On previous visits her H.Pylori was negative and we had her scheduled for a GB sonagram but she was post at the time and her sx's had improved and she th ought she might be better. However, in the past month, she has had two severe episodes of N/V and RUQ pain with sweats and fever. The last episode is described as two days ago and severe.) and has bee n occurring in a persistent pattern for 5 months. The course has been recurrent. The abdominal pain is described as a moderate colicky and dull ache. The abdominal pain is described as being located in the right upper quadrant. The abdominal pain radiates to the right shoulder. The symptoms are aggravated by meals (1/2 to 1 hour after eating). The symptoms are relieved by belching. The symptoms have b een associated with bloating. Previous e valuations have included ultrasound. Note for "Abdominal pain": Pt is here today with complaints of having RUQ pain X 6 months. The medication has helped her but the pain comes and goes. Pt is not a llergic to any medication. We will check a UA on her in the office today.Encounter Diagnosis: Abdominal pain, RUQ, Abdominal pain, colicky [facility] Office Visit On: 07-Jan-2019 15:30 Encounter Reason: Abdominal pain - The o nset of the abdominal pain has been gradual (Pt is 4 weeks post and has been having pain and tenderness with episodes of nausea and vomiting at intervals since the delivery. End: 07-Jan-2019 17:12 She reports similar sx's during the la st 3 to 4 months of the . The pain has been localized in the epigastric area and the RUQ of the abdomen and radiates the the right mid back under the ri ght shoulder blade.) and has been occurr ing in an intermittent pattern for 3 months. The course has been recurrent. The abdominal pain is described as a moderate colicky. The abdominal pain is described as being located in the right upper regina drant. The abdominal pain radiates to the right shoulder. The symptoms are aggravated by meals (1/2 to 1 hour after eating). The symptoms are relieved by belching . The symptoms have been associated with bloating. Note for "Abdominal pain": Pt is here today with complaints of having RUQ pain X 6 months. Pt recently gave child and thought that was the proble m. Pt hurts and belches a lot. We will c noreenk for H. Pylori for her in the office. Pt is not allergic to any medication.Encounter Diagnosis: Abdominal pain, colicky, Abdominal pain, epigastric, Abdominal pain, RUQ [facility] Office Visit On: 09-May-2017 8:51 Encounter Diagnosis: Sprain of ulnar col lateral ligament of left elbow, initial encounter, Closed nondisplaced fracture of neck of left radius, initial encounter End: 09-May-2017 15:02 [facility] Office Visit On: 01-May-2017 16:36 Encounter Reason: F/U - Pt is here today to f/u from a fall she had on 04/18/17. Pt reports that her entire left hand is still numb with some tingling sensation. Pt reports that sometimes the numbness is worse than others. End: 01-May-2017 18:30 Pt went to the ER on 04/18/17 and they re ported no broken bones. Pt reports if she attempts to lift her arm above her shoulders she has a shooting pain. Pt reports she can not fully straighten her left a rm out or turn it over. Pt has also noti stas mason liner loss in the left handEncounter Diagnosis: Pain and swelling of elbow, left, Decreased ROM of left elbow, Finger numbness [facility] Office Visit On: 18-Apr-2017 15:54 Encounter Reason: Fall - Pt is here toda y for a fall at home. She fell less than an hour ago on her porch and caught herself with her left hand. Pt has complaints of finger tingling in the left hand and pain all the wa End: 18-Apr-2017 16:20 y up to her left shoulder. Pt reports th e pain is a level ten. Pt also states she feels hot and dizzy but no other symptoms. Encounter Diagnosis: Left arm pain [facility] Payers Alexandra Capps; sue guarantor
== END 2021-03-08 16:45 | disposition home or self-care (01) | DRG 805 ==
LOC: ER 09:54 → LD 10:45 → ICU 15:28
PROVIDERS: ADMIT Obstetrics & Gynecology; ATTEND Obstetrics & Gynecology Obstetrics